=== PATIENT | male | born 1950 | race Caucasian/White ===

== ENCOUNTER 2024-11-08 17:41 | Inpatient (IN) ==
[2024-11-08 18:22] LABS: Basophils # (Auto) 0.02 K/mcL (0.00-0.30); Basophils % (Auto) 0.3 % (0.0-2.0); Eosinophils # (Auto) 0.08 K/mcL (0.00-0.70); Eosinophils % (Auto) 1.2 % (0.0-7.0); Hematocrit 25.7 % (40.1-51.0); Hemoglobin 7.4 g/dL (13.7-17.5); Lymphocytes # (Auto) 1.21 K/mcL (1.50-4.80); Lymphocytes % (Auto) 18.3 % (15.5-49.0); Mean Cell Volume 76.9 fL (80.0-100.0); Mean Corpuscular HGB Conc 28.8 g/dL (31.0-36.0); Mean Platelet Volume 10.1 fL (8.8-12.5); Monocytes # (Auto) 0.78 K/mcL (0.10-0.90); Monocytes % (Auto) 11.8 % (1.0-12.0); Neutrophils % (Auto) 68.2 % (38.0-78.0); Platelet Count 334 K/mcL (140-440); RBC 3.34 M/mcL (4.63-6.08); Red Cell Distribution Width 16.8 % (11.5-14.5); WBC 6.6 K/mcL (4.5-11.0)
[2024-11-08 18:43] LABS: Blood Urea Nitrogen 21 mg/dL (8-23); Calcium 9.1 mg/dL (8.6-10.4); Carbon Dioxide 23 mmol/L (22-30); Chloride 102 mmol/L (96-108); Glomerular Filtration Rate 66; Glucose 102 mg/dL (70-105); Potassium 4.1 mmol/L (3.3-5.1); Sodium 139 mmol/L (133-145)
[2024-11-08] MEDS: FUROSEMIDE 40 MG/4 ML VIAL IV ONE ×2 (18:46→23:03)
[2024-11-08] MEDS ORDERED: METOCLOPRAMIDE 10 MG/2 ML VIAL IV PRN (20:44)
[2024-11-08] MEDS ORDERED: IPRATROPIUM/ALBUTEROL 3 ML AMPUL.NEB NEB PRN (20:44)
[2024-11-08] MEDS ORDERED: ONDANSETRON 4 MG/2 ML VIAL IV PRN (20:44)
[2024-11-08] MEDS ORDERED: DEXTROSE 50% 50 ML VIAL IV PRN (20:44)
[2024-11-08] MEDS ORDERED: POTASSIUM CHLORIDE 20 MEQ TABLET PO PRN ×2 (20:44)
[2024-11-08] MEDS ORDERED: SENNOSIDES 1 TABLET PO PRN (20:44)
[2024-11-08] MEDS ORDERED: MAGNESIUM SULFATE 2 GM/50 ML BAG IV PRN (20:44)
[2024-11-08] MEDS ORDERED: DEXTROSE 31 GM ORAL.SUSP PO PRN (20:44)
[2024-11-08] MEDS ORDERED: POTASSIUM CHLORIDE 40 MEQ in DEXTROSE 5% IN WATER 500 ML IV PRN (20:44)
[2024-11-08] MEDS ORDERED: POLYETHYLENE GLYCOL 3350 17 GM PACKET PO PRN (20:44)
[2024-11-08 21:27] LABS: Retic Absolute 0.06 M/mcL (0.03-0.11)
[2024-11-08 21:53] LABS: Ferritin 21.1 ng/mL (30.0-400.0)
[2024-11-08] MEDS: 0.9 % SODIUM CHLORIDE 250 ML IV SCH ×2 (22:05→23:27)
[2024-11-08] MEDS: INSULIN LISPRO 1 UNIT/0.01 ML UNIT SQ SCH (22:34)
[2024-11-08] MEDS: GABAPENTIN 300 MG CAPSULE PO SCH (22:59)
[2024-11-08] MEDS: DOCUSATE SODIUM 100 MG CAPSULE PO SCH (23:01)
[2024-11-08] MEDS: IRON SUCROSE COMPLEX 100 MG/5 ML VIAL IV ONE (23:03)
[2024-11-09 06:01] LABS: Basophils # (Auto) 0.02 K/mcL (0.00-0.30); Basophils % (Auto) 0.4 % (0.0-2.0); Eosinophils # (Auto) 0.12 K/mcL (0.00-0.70); Eosinophils % (Auto) 2.4 % (0.0-7.0); Hematocrit 28.5 % (40.1-51.0); Hemoglobin 8.6 g/dL (13.7-17.5); Lymphocytes % (Auto) 21.6 % (15.5-49.0); Mean Cell Volume 77.9 fL (80.0-100.0); Mean Corpuscular HGB Conc 30.2 g/dL (31.0-36.0); Mean Platelet Volume 10.7 fL (8.8-12.5); Monocytes # (Auto) 0.87 K/mcL (0.10-0.90); Monocytes % (Auto) 17.1 % (1.0-12.0); Neutrophils % (Auto) 58.3 % (38.0-78.0); Platelet Count 305 K/mcL (140-440); RBC 3.66 M/mcL (4.63-6.08); Red Cell Distribution Width 17.6 % (11.5-14.5); WBC 5.1 K/mcL (4.5-11.0)
[2024-11-09 06:19] LABS: ALT/SGPT 15 U/L (<40); AST/SGOT 19 U/L (<40); Albumin/Globulin Ratio 1.5 (1.0-2.3); Alkaline Phosphatase 115 U/L (39-117); Bilirubin,Direct 0.2 mg/dL (<0.3); Bilirubin,Total 0.5 mg/dL (0.1-1.0); Blood Urea Nitrogen 20 mg/dL (8-23); Calcium 9.1 mg/dL (8.6-10.4); Carbon Dioxide 26 mmol/L (22-30); Chloride 101 mmol/L (96-108); Globulin 2.6 gm/dL (2.2-3.7); Glomerular Filtration Rate 75; Glucose 164 mg/dL (70-105); Lactate Dehydrogenase 204 U/L (135-225); Phosphorous 3.9 mg/dL (2.5-4.5); Potassium 3.7 mmol/L (3.3-5.1); Sodium 136 mmol/L (133-145); Triglycerides 113 mg/dL (<150)
[2024-11-09] MEDS: FUROSEMIDE 40 MG/4 ML VIAL IV SCH (08:39)
[2024-11-09] MEDS: INSULIN GLARGINE, HUMAN 1 UNIT/0.01 ML SQ SCH (08:39)
[2024-11-09] MEDS: GABAPENTIN 300 MG CAPSULE PO SCH (08:39)
[2024-11-09] MEDS: GABAPENTIN 400 MG CAPSULE PO SCH (20:25)
[2024-11-10] MEDS: IRON SUCROSE COMPLEX 100 MG/5 ML VIAL IV SCH (09:20)
[2024-11-10 10:56] VITALS: TEMP 98.2; O2SAT 98
== END 2024-11-10 11:19 | disposition home or self-care (01) | DRG 291 ==
LOC: ED 17:41 → ICU 20:36
PROVIDERS: ADMIT Internal Medicine; ATTEND Internal Medicine